=== PATIENT | female | born 1985 | race Caucasian/White ===

== ENCOUNTER 2022-05-04 16:01 | Emergency (ER) | payer SELFPAY ==
[2022-05-04] MEDS ORDERED: Ketorolac Tromethamine 30 MG/ML VIAL ONE (16:49)
== END 2022-05-04 18:07 | disposition home or self-care (01) ==
LOC: CSHERS 16:01
DX: S63.502A Unspecified sprain of left wrist, initial encounter (principal); X50.1XXA Overexertion from prolonged static or awkward postures, initial encounter; F17.210 Nicotine dependence, cigarettes, uncomplicated
CPT/HCPCS: 96372; J1885

== ENCOUNTER 2025-09-23 09:22 | Outpatient (CLI) | payer OTHER ==
[2025-09-23] MEDS ORDERED: Iopamidol 300 61% 100 ML VIAL FS ONE (10:39)
== END 2025-09-23 09:23 | disposition home or self-care (01) ==
LOC: CSHCT 09:22
PROVIDERS: ATTEND Orthopaedic Surgery
DX: M43.16 Spondylolisthesis, lumbar region (principal); N85.2 Hypertrophy of uterus
CPT/HCPCS: 36415; 72133; Q9967